=== PATIENT | male | born 1970 | race African-American/Black ===

== ENCOUNTER 2017-06-24 09:32 | Emergency (ER) | payer SELFPAY ==
[~2017-06-24] VITALS: Ht 180.3 cm; Wt 69.0 kg
[~2017-06-24 09:32] MED LIST: LISI-363 PO; PROM25SU8 PO
[2017-06-24 09:35] VITALS: BP 158/99; PULSE 84; RESP 16; TEMP 98.3; O2SAT 99
--- NOTE | 2017-06-24 09:53 | PD ---
HPI Chief Complaint: Flank/Kidney Pain Time Seen by Provider: 09:45 Travel History International Travel<30 days: No Contact w/Intl Traveler<30days: No Traveled to known affect area: No History of Present Illness HPI Patient comes in complaining of left-sided rib pain that began last night after trip and fall. Patient reports he landed on his heater that was not on at the time causing the pain. Patient describes pain as "just pain". Denies any radiation of the pain. Pain is worse with certain movement, palpation, deep inspiration, and coughing. Denies any chest pain, shortness breath, head injury , loss of consciousness, abdominal pain, nausea, vomiting, loss or change in bowel or bladder, or doing anything for this. Patient reports his tetanus shot is up-to-date. Patient also sustained an abrasion from where he fell. Denies doing anything for this. PFSH Past Medical History Cardiovascular Problems: Yes (HTN) Diminished Hearing: No GERD: Yes Genitourinary: No Hiatal Hernia: Yes Immune Disorder: No Musculoskeletal: No Neurologic: Yes Psychiatric: No Reproductive: No Respiratory: Yes (PE) Immunizations Current: Yes Past Surgical History Abdominal Surgery: Yes (HERNIA REPAIR X2 INGUINAL BILAT) Other Surgery: Yes Social History Alcohol Use: Yes (8 pack a day) Tobacco Use: Yes (1 to 1 1/2 ppd) Substance Use: Yes (marijuana & cocaine ) Allergies-Medications (Allergen,Severity, Reaction): Coded Allergies: No Known Allergies (Verified Adverse Reaction, Unknown, 06/24/17) Reported Meds & Prescriptions Reported Meds & Active Scripts Active Naprosyn (Naproxen) 500 Mg Tab 500 Mg PO Q12HR PRN Promethazine Hcl (Promethazine HCl) 25 Mg Tab 25 Mg PO Q6H PRN FOR NAUSEA/VOMITING Reported Lisinopril 20 mg (Lisinopril) 20 Mg Tab 20 Mg PO DAILY Review of Systems Except as stated in HPI: all other systems reviewed are Neg Physical Exam Narrative GENERAL: Well-developed, well nourished, in no acute distress, and non-ill appearing. SKIN: Focused skin assessment warm and dry. Superficial nonrepairable abrasion noted left lateral rib cage. HEAD: Atraumatic. Normocephalic. EYES: Pupils equal and round. EOMI. No scleral icterus. No injection or drainage. ENT: No nasal bleeding or discharge. Mucous membranes pink and moist. NECK: Trachea midline. Supple. No nuclear rigidity. CARDIOVASCULAR: Regular rate and rhythm. No murmur appreciated. RESPIRATORY: No accessory muscle use. No respiratory distress. Clear to auscultation. Breath sounds equal bilaterally. Patient reports tenderness to palpation left lateral rib cage. There is no crepitus or step-off noted. GASTROINTESTINAL: Abdomen soft, non-tender, nondistended, and no guarding. Hepatic and splenic margins not palpable. No pulsatile mass. MUSCULOSKELETAL: No obvious deformities. No clubbing. No cyanosis. No edema. Full range of motion. NEUROLOGICAL: Awake and alert. No obvious cranial nerve deficits. Motor grossly within normal limits. Normal speech. PSYCHIATRIC: Appropriate mood and affect; insight and judgment normal. Data Data Last Documented VS Vital Signs Date Time Temp Pulse Resp B/P (MAP) Pulse Ox O2 Delivery O2 Flow Rate FiO2 06/24/17 11:35 06/24/17 11:35 16 06/24/17 09:35 98.3 84 99 Orders Orders Ketorolac Inj (Toradol Inj) (06/24/17 10:00) Ice/Cold Pack (06/24/17 09:49) Ribs, Uni (W/Exp Cxr-Min 3vw) (06/24/17 ) Resp Incentive Spirometry (06/24/17 ) Naproxen (Naprosyn) (06/24/17 10:30) Ed Discharge Order (06/24/17 11:32) MDM Medical Decision Making Medical Screen Exam Complete: Yes Emergency Medical Condition: Yes Interpretation(s) Rib x-ray read by the radiologist shows: Unremarakble examination of the left ribs and chest. Differential Diagnosis Fracture, contusion, dislocation, pneumothorax, abrasion, laceration Narrative Course The patient suffered a minor chest wall contusion. There is no clinical evidence to suggest intrathoracic injury nor cardiac injury at this time. The patient has no significant pain, shortness of breath or dyspnea. The patient moves air well without difficulty and is clear to auscultation. Heart sounds are audible without rubs, murmurs or gallops. There is no palpable crepitus. Pulses are symmetrical and strong. There is no significant tenderness over the lower chest to suggest injury to the liver nor spleen. Chest X-ray was normal without evidence of fracture, pneumothorax or hemothorax. The Mediastinum appeared within normal limits. Diagnosis was discussed with the patient. The patient is to return if develops any worsening pain difficulty breathing, or if coughs up blood or develops fever. Patient agrees with plan and was recommended to follow up with their regular physician. The patient suffered abrasion. The abrasions are very superficial and non- repairable. There was no evidence to suggest foreign bodies. Visual and tactile exams were unremarkable. There was no evidence of neurovascular injury as well. The patient was given signs and symptom warnings for infection, such as increasing pain, redness, swelling, associated heat, pus or fever. The patient was warned of possible unseen foreign body and instructed to return immediately if signs or symptoms develop. The patient was given instructions for timely follow up. The patient agreed with plan of care. Patient in no obvious distress upon re-evaluation. All pertinent Radiology result(s) discussed with patient. Patient was asked if they wanted to speak to my attending, which the patient did not wish to do at this time. Any questions/ concerns in reference to patient diagnosis/condition discussed and clarified prior to patient's discharge. Reinforced sheer importance of close follow up with patient's primary physician or primary care clinic. Instructed patient to return to ED immediately, if symptoms return/worsen. Patient showed understanding of above instructions. Further instructions and recommendations were detailed in discharge paperwork. Patient ambulated without difficulty out of ED at discharge. Diagnosis Primary Impression: Rib contusion Qualified Codes: S20.212A - Contusion of left front wall of thorax, initial encounter Additional Impression: Abrasion Referrals: [facility] Patient Instructions: Abrasion (ED), General Instructions, Rib Contusion (ED) Additional Instructions: Follow-up with your primary care physician in 3-5 days for reevaluation. Take all medication as prescribed. Use [id number] Tylenol as needed for additional pain control. Follow instructions on the packaging. Use incentive spirometer as instructed to decrease chances of pneumonia. Keep wound dry and clean as possible using soap and water. Use Neosporin to promote healing. Do not soak or submerge wound. Return to the emergency department if symptoms get worse. Med/Other Pt SpecificInfo: Prescription(s) given Scripts Naproxen (Naprosyn) 500 Mg Tab 500 MG PO Q12HR Y for PAIN SCALE 1 TO 10, #14 TAB 0 Refills Prov: Isaias Levi MD 06/24/17 Disposition: 01 DISCHARGE HOME Condition: Stable Adams Badillo Jun 24, 2017 09:53
[2017-06-24] MEDS ORDERED: KETOROLAC TROMETHAMINE 60 MG/2 ML (IM) VIAL IM ONE (10:00)
[2017-06-24] MEDS ORDERED: NAPROXEN 500 MG TAB PO ONE (10:30)
--- NOTE | 2017-06-24 11:27 | RADRPT ---
EXAM DATE/TIME: 06/24/2017 10:47 [facility] COMPARISON: No previous studies available for comparison. INDICATIONS : Left sided rib pain, fall. MEDICAL HISTORY : None. SURGICAL HISTORY : None. ENCOUNTER: Initial ACUITY: 2 days PAIN SCORE: 10/10 LOCATION: Left middle ribs FINDINGS: Multiple views of the left ribs were performed. There is no evidence of displaced fracture. No dest ructive lesions or areas of periosteal thickening are seen. Expiratory view of the chest is negative for pneumothorax. The mediastinal structures are midline. CONCLUSION: Unremarakble examination of the left ribs and chest. Trenton Currie MD on June 24, 2017 at 11:24 Board Certified Radiologist. This report was verified electronically.
[2017-06-24] MEDS ORDERED: NAPR500 PO (11:33)
[2017-06-24 11:35] VITALS: RESP 16
== END 2017-06-24 11:48 | disposition home or self-care (01) ==
LOC: NEPK 09:32
DX: S20.212A Contusion of left front wall of thorax, initial encounter (principal); T14.8XXA Other injury of unspecified body region, initial encounter; I10 Essential (primary) hypertension; F17.200 Nicotine dependence, unspecified, uncomplicated; W01.0XXA Fall on same level from slipping, tripping and stumbling without subsequent striking against object, initial encounter
CPT/HCPCS: 71101; 94150; 96372

== ENCOUNTER 2017-11-17 08:26 | Emergency (ER) | payer BC ==
[~2017-11-17] VITALS: Ht 180.3 cm; Wt 66.3 kg
[~2017-11-17 08:26] MED LIST changes: +NAPR500 PO
[2017-11-17 08:30] VITALS: BP 139/82; PULSE 99; RESP 16; TEMP 98.8; O2SAT 99
[2017-11-17] MEDS ORDERED: LIDOCAINE HCL 1% PF 30 ML VIAL INFIL ONE (09:00)
[2017-11-17] MEDS ORDERED: BACT800T5 PO (09:11)
--- NOTE | 2017-11-17 09:20 | PD ---
HPI Chief Complaint: Skin Problem Time Seen by Provider: 08:34 Travel History International Travel<30 days: No Contact w/Intl Traveler<30days: No Traveled to known affect area: No History of Present Illness HPI 46-year-old male presents to the emergency room for evaluation of painful lump to his buttocks area for the past several days. States pain was so severe last night that he had trouble sleeping. It is constant, throbbing in nature. Worse when he sits or rides his bike. Patient has to ride his bike to work every day. He has not taken anything for symptoms. His girlfriend applied a warm compress to the area without relief in symptoms. He denies objective fevers but reports feeling sweaty. No chronic medical conditions or daily medications. PFSH Past Medical History Cardiovascular Problems: Yes (HTN) Chest Pain: Yes Diminished Hearing: No GERD: Yes Genitourinary: No Hiatal Hernia: Yes Immune Disorder: No Musculoskeletal: No Neurologic: Yes Psychiatric: No Reproductive: No Respiratory: Yes (PE) Immunizations Current: Yes Past Surgical History Abdominal Surgery: Yes (HERNIA REPAIR X2 INGUINAL BILAT) Other Surgery: Yes Social History Alcohol Use: Yes (8 pack a day) Tobacco Use: Yes (1 to 1 1/2 ppd) Substance Use: No (marijuana & cocaine quit) Allergies-Medications (Allergen,Severity, Reaction): Coded Allergies: No Known Allergies (Verified Adverse Reaction, Unknown, 11/17/17) Reported Meds & Prescriptions Reported Meds & Active Scripts Active Naprosyn (Naproxen) 500 Mg Tab 500 Mg PO Q12HR PRN Promethazine Hcl (Promethazine HCl) 25 Mg Tab 25 Mg PO Q6H PRN FOR NAUSEA/VOMITING Reported Lisinopril 20 mg (Lisinopril) 20 Mg Tab 20 Mg PO DAILY Review of Systems Except as stated in HPI: all other systems reviewed are Neg Physical Exam Narrative GENERAL: Well-nourished, well-developed male in no acute distress. Afebrile. Ambulatory. SKIN: Focused skin assessment warm/dry. There is an indurated area in the right buttocks about 2 cm from the 5 o'clock position of the anus which measures about 4 cm in diameter. It is fluctuant but there is no pointing or drainage. There is a zone of inflammation around it but no lymphangitis. HEAD: Atraumatic. Normocephalic. EYES: Pupils equal and round. No scleral icterus. No injection or drainage. NECK: Trachea midline. No JVD. CARDIOVASCULAR: Regular rate and rhythm. No murmur appreciated. RESPIRATORY: No accessory muscle use. Clear to auscultation. Breath sounds equal bilaterally. MUSCULOSKELETAL: No obvious deformities. No clubbing. No cyanosis. No edema. Data Data Last Documented VS Vital Signs Date Time Temp Pulse Resp B/P (MAP) Pulse Ox O2 Delivery O2 Flow Rate FiO2 11/17/17 08:30 98.8 99 16 139/82 (101) 99 Orders Orders Lidocaine Pf 1% Inj (Xylocaine-Mpf 1% In (11/17/17 09:00) MDM Medical Decision Making Medical Screen Exam Complete: Yes Emergency Medical Condition: Yes Medical Record Reviewed: Yes Differential Diagnosis Perianal abscess, abscess, pilonidal cyst Narrative Course 46-year-old male presents to the emergency room for evaluation of abscess to his buttocks for the past several days. Pain worsened last night. Physical exam reveals a 3 cm abscess 2 cm to the right of the 5 o'clock position of the anus. No rectal involvement. No systemic signs of infection. Abscess was drained, see procedure note for details. Patient reported immediate improvement in pain. He will be discharged with prescription for Bactrim and told to follow-up with primary care physician or return to the emergency room for worsening symptoms. He understands and agrees to plan. Procedures Procedure Narrative INCISION AND DRAINAGE OF ABSCESS: The area was prepped and was sterilely draped. A subcutaneous wheal of 1 % Xylocaine with a total number 3 mL was used to anesthetize the area properly. A number 11 scalpel was used to make a 1 cm incision across the area of the abscess. The abscess was drained, complex loculations were broken down, and irrigated with normal saline. Sterile dressing applied. Diagnosis Primary Impression: Abscess of buttock, right Referrals: Primary Care Physician Departure Forms: Tests/Procedures, Work Release Enter return to work date: November 19, 2017 Additional Instructions: Rest and drink plenty of fluids. Bactrim as directed, until gone. Take ibuprofen with food as directed, as needed for pain. Apply warm compresses to the affected area for 20 minutes at a time, as needed for pain and swelling. Follow-up with a primary care physician. Return to the emergency room for worsening symptoms. Med/Other Pt SpecificInfo: Prescription(s) given Scripts Sulfamethoxazole-Trimethoprim (Bactrim DS) 800-160 Mg Tab 1 TAB PO BID for Infection, #20 TAB 0 Refills Prov: Shanon Breaux MD 11/17/17 Disposition: 01 DISCHARGE HOME Condition: Stable Dora Stone November 17, 2017 09:20
== END 2017-11-17 09:34 | disposition home or self-care (01) ==
LOC: NEPD 08:26
DX: L02.31 Cutaneous abscess of buttock (principal); I10 Essential (primary) hypertension; F17.200 Nicotine dependence, unspecified, uncomplicated
CPT/HCPCS: 10060